=== PATIENT | male | born 1940 | race Caucasian/White ===

== ENCOUNTER → 2016-09-13 | Outpatient (CLI) | payer MEDICARE ==
[~2016-09-13] MED LIST: ACET-685 PO; ALBU8.5H7 IH; ASPI-655 PO; ATOR10TA PO; BUDE10.2 INH; BUPR200T31 PO; DOXY100T PO; IPRA12.9 IH; Ipratropium/Albuterol Sulfate IH; LISI-410 PO; MELO7.5T31 PO; MULT1TAB52 PO; NS 100ML 100 ML IV PRN; NS FLUSH PRN; PRED20TA PO; VARE1TAB20 PO
--- NOTE | 2016-09-14 11:56 | DIREP ---
COMPARISON:[facility], CR, XRAY RIBS 3VWS-RT, 09/06/2016, 10:29 AM. [facility], CT, CTA PE CHEST W/PELVIS/ LEGS, 06/17/2016, 00:39 AM. INDICATIONS:D38.6 NEOPLASM OF RESPIRATORY ORGAN TECHNIQUE:Helical sections through the chest were performed from the lung apices through the diaphragms without and with IV contrast. Sagittal and coronal reconstructions are obtained from source images. FINDINGS: LUNGS:Severe centrilobular emphysema, with stable bilateral upper and lower lobe lung nodules, noted to be calcified in the left upper lobe. PLEURA:Normal. No mass or effusion. CARDIAC:Normal. No enlargement, pericardial thickening, or significant calcification. MEDIASTINUM:Normal, except for median sternotomy. No mass or adenopathy. RENA:Normal. No mass or adenopathy. AORTA:Normal, except for atherosclerotic changes. No aneurysm. CHEST WALL:Normal. No mass or axillary adenopathy. LIMITED ABDOMEN:Normal. Limited images of the upper abdomen are unremarkable. BONES:Normal, except for healed bilateral rib fractures. No bony lesion or acute fracture. OTHER:Negative. CONCLUSION:Severe centrilobular emphysema, with stable bilateral upper and lower lobe lung nodules, noted to be calcified in the left upper lobe. No new abnormality or significant interval change. Dictated by: Mane Zaman M.D. on 09/14/2016 at 11:48 AM
== END | disposition home or self-care (01) ==
LOC: CT 15:07
PROVIDERS: ATTEND Internal Medicine
DX: D38.6 Neoplasm of uncertain behavior of respiratory organ, unspecified (principal)
CPT/HCPCS: 36415; 71270; 82565; J7030; Q9967; J7050

== ENCOUNTER 2016-12-11 11:33 | Inpatient (IN) | payer MEDICARE ==
[~2016-12-11] VITALS: Ht 157.5 cm; Wt 47.2 kg
[~2016-12-11 11:33] MED LIST changes: +ALBU8.5H3 IH; -ALBU8.5H7 IH; -ASPI-655 PO; -ATOR10TA PO; -BUPR200T31 PO; -DOXY100T PO; -Ipratropium/Albuterol Sulfate IH; +MELO-180 PO; -MELO7.5T31 PO; -MULT1TAB52 PO; -NS 100ML 100 ML IV PRN; -NS FLUSH PRN
--- NOTE | 2016-12-11 11:43 | NUR ---
arrival PATIENT ARRIVED TO ED8 IN CUSTODY OF THE [facility] OFFICE, BROUGHT TO ED COURT ORDERED FOR NOT SLEEPING OR TAKING MEDICATIONS, PATIENT IS WAS BELIGERANT TO DAUGHTER AND TOLD HER SHE WAS LYING TO HIM, WHEN ASKED WHAT THEY LIED TO HIM ABOUT HE STATED "FOR DRUGGING AND CUTTING MY HAIR. HERE FOR EVALUATION FOR THE GP.
[2016-12-11 11:55] LABS: BASOPHIL % 0.6 % (0.0-0.2); EOSINOPHIL # 0.1 10^3/uL (0.0-0.2); EOSINOPHIL % 1.7 % (0.0-5.0); HEMATOCRIT 40.5 % (37.0-53.0); HEMOGLOBIN 13.2 g/dL (13.9-16.3); LYMPHOCYTES # 1.1 10^3/uL (1.0-4.8); LYMPHOCYTES % 16.4 % (24.0-44.0); MEAN CELL HGB 30.8 pg (26-34); MEAN CELL HGB CONCENTRATION 32.6 g/dL (33-37); MEAN CORP VOLUME 94.6 fL (78-100); MEAN PLATELET VOLUME 8.7 fL (7.8-11.0); MONOCYTES # 0.5 10^3/uL (0.3-0.8); MONOCYTES % 7.4 % (5.0-12.0); NEUTROPHIL # 4.8 10^3/uL (1.8-7.7); NEUTROPHILS % 73.7 % (41.0-85.0); RED BLOOD CELL 4.28 10^6/uL (4.50-5.90); RED CELL DISTRIBUTION WIDTH 16.5 % (11.5-14.5); WHITE BLOOD CELL 6.5 10^3/uL (4.5-11.0)
[2016-12-11 11:58] LABS: ABG OX -sO2 94.3 % (95-); ABG PCO2 30.7 mmHg (35.0-45.0); BE(B) -2.7 mmol/L (-2.0-2.0); HCO3act 20.4 mmol/L (22.0-26.0); pO2 73.3 mmHg (75.0-100.0)
[2016-12-11 12:14] LABS: INR 1.1; PARTIAL THROMBOPLASTIN TIME 24.7 SEC (24.67-30.72); PROTHROMBIN PROTIME 11.9 SEC (9.8-11.9)
[2016-12-11 12:23] LABS: ALANINE AMINOTRANSFERASE 19 U/L (12-78); ALBUMIN 4.3 g/dL (3.4-5.0); ALKALINE PHOSPHATASE 75 U/L (50-136); ANION GAP 16.4; ASPARTATE AMINO TRANSFERASE 19 U/L (0-35); CALCIUM 9.2 mg/dL (8.4-10.5); CARBON DIOXIDE 24.7 mmol/L (20.0-32); CHOLESTEROL 150 mg/dL (120-240); CREATINE KINASE MB 2.2 ng/mL (0.5-3.6); CREATININE SERUM 1.14 mg/dL (0.59-1.40); GLUCOSE 114 mg/dL (70-110); HDL CHOLESTEROL 83 mg/dL (32-96)
[2016-12-11 12:25] LABS: BILIRUBIN,URINE NEGATIVE (NEGATIVE); PH,URINE 5 (5.0-6.0); UROBILINOGEN,URINE NORMAL (NEGATIVE)
--- NOTE | 2016-12-11 12:30 | DIREP ---
PROCEDURE:CHEST [address] [facility], CR, XRAY RIBS 3VWS-RT, 09/06/2016, 10:[address] [facility], CR, XRAY CHEST SINGLE VW, 06/22/2016, 09:39 AM. INDICATIONS:medical clearance FINDINGS: LUNGS/PLEURA:There is pulmonary hyperinflation consistent with underlying COPD. No focal consolidation. No effusions. VASCULATURE:Normal. Unremarkable pulmonary vasculature. CARDIAC:Normal heart size. Post CABG changes with median sternotomy wires. MEDIASTINUM:Normal. No visible mass or adenopathy. BONES:Mild degenerative disc disease and spondylosis without visible acute abnormalities. OTHER:Negative. CONCLUSION:COPD. No definite acute cardiopulmonary abnormalities. There is no significant change as compared with the previous examination. Dictated by: Hung Cotto M.D. on 12/11/2016 at 12:28 PM
[2016-12-11 12:35] LABS: VALPROATE < 3 ug/mL (50-100)
[2016-12-11 12:37] LABS: UR AMPHETAMINE QUAL NEGATIVE (NEGATIVE); UR BARBITURATE QUAL NEGATIVE (NEGATIVE)
[2016-12-11 12:38] LABS: UR BENZODIAZEPINE QUAL NEGATIVE (NEGATIVE); UR COCAINE QUAL NEGATIVE (NEGATIVE); UR OPIATE QUALITIVE NEGATIVE (NEGATIVE); UR TETRAHYDROCANNABINOL (THC) NEGATIVE (NEGATIVE)
[2016-12-11 12:39] LABS: APPEARANCE,URINE CLEAR (CLEAR); UA COLOR YELLOW (YELLOW)
[2016-12-11 12:40] LABS: HYALINE CASTS, URINE 0-1 (NONE SEEN); WBC,URINE 0-2 WBC/HPF (0-2)
--- NOTE | 2016-12-11 13:00 | NUR ---
JULIANNE JOHANSEN SPOKE WITH DOCTOR WHITAKER ABOUT ADMISSION.
--- NOTE | 2016-12-11 13:09 | ER.PDOC ---
General Chief Complaint: Medical Clearance Stated Complaint: PSYCH Time seen by MD: 11:30 Source: patient History of Present Illness Initial Comments bipolar, agitated, hallucinaating, not sleeping. on warrant for GP Severity: moderate Associated Symptoms: Frustrated, Hallucinating Prior symptoms/Treatment: Similar symptoms previous Allergies: Coded Allergies: No Known Allergies (Unverified , 12/01/13) Home Meds Reported Medications Acetaminophen With Codeine (Tylenol With Codeine #3 Tablet)1 Each Tablet1 Tab PO TID PRN PAIN #30 TAB 06/22/16 Lisinopril 20 Mg Tablet1 Tab PO DAILY #30 TAB Ref 5 06/22/16 Budesonide/Formoterol Fumarate (Symbicort 160-4.5 Mcg Inhaler)10.2 Gm Hfa.aer.ad2 Puff INH BID 06/17/16 Meloxicam 7.5 Mg Tablet7.5 Mg PO BID 06/17/16 Albuterol Sulfate (Proair Hfa)8.5 Gm Hfa.aer.ad1 Puff IH QID PRN WHEEZING 06/17/16 Past Medical History Medical History: cardiac problems, hypertension Surgical History: knee, shoulder, tonsillectomy Social History Smoking: cigarettes, less than 1 pack/day Alcohol Use: none Drug Use: none Review of Systems Constitutional: no symptoms reported EENTM: no symptoms reported Respiratory: no symptoms reported Cardiovascular: no symptoms reported Gastrointestinal: no symptoms reported Genitourinary: no symptoms reported Musculoskeletal: no symptoms reported Skin: no symptoms reported Physical Exam General Appearance: No acute distress, Alert EENT: No nystagmus Neck: Non-Tender Respiratory: chest non-tender, lungs clear Cardiovascular: Normal Peripheral Pulses, Regular Rate, Rhythm Gastrointestinal: Normal Bowel Sounds Neurological/Psychiatric: Alert, Normal Mood/Affect Appearance/Memory/Insight: Appropriate Appearance Behavior/Eye Contact/Speech: Cooperative, Good Eye Contact Thoughts/Hallucinations: Normal Thought Pattern Skin: Normal Color, Warm/Dry Results/Orders Results/Orders Laboratory Tests Test 12/11/16 11:49 12/11/16 11:52 12/11/16 12:09 Blood Gas pH 7.440 (7.350-7.450) Blood Gas PCO2 30.7mmHg (35.0-45.0) Blood Gas PO2 73.3mmHg (75.0-100.0) Blood Gas HCO3 20.4mmol/L (22.0-26.0) Blood Gas Base Excess -2.7mmol/L (-2.0-2.0) Arterial Blood Oxygen Saturation 94.3% (95-) Lactic Acid (Blood Gas) 2.3MMOL/L (0.5-1.0) Blood Gas Oxygen Given Ra Blood Gas Inspired Oxygen 21.0% (20-101) White Blood Count 6.510^3/uL (4.5-11.0) Red Blood Count 4.2810^6/uL (4.50-5.90) Hemoglobin 13.2g/dL (13.9-16.3) Hematocrit 40.5% (37.0-53.0) Mean Corpuscular Volume 94.6fL (78-100) Mean Corpuscular Hemoglobin 30.8pg (26-34) Mean Corpuscular Hemoglobin Concent 32.6g/dL (33-37) Red Cell Distribution Width 16.5% (11.5-14.5) Platelet Count 71938^3/uL (150-400) Mean Platelet Volume 8.7fL (7.8-11.0) Neutrophils (%) (Auto) 73.7% (41.0-85.0) Lymphocytes (%) (Auto) 16.4% (24.0-44.0) Monocytes (%) (Auto) 7.4% (5.0-12.0) Neutrophils # (Auto) 4.810^3/uL (1.8-7.7) Lymphocytes # (Auto) 1.110^3/uL (1.0-4.8) Monocytes # (Auto) 0.510^3/uL (0.3-0.8) Absolute Immature Granulocyte (auto 0.0110^3 u/L (0-2) Eosinophils % 1.7% (0.0-5.0) Basophils % 0.6% (0.0-0.2) Basophils # 0.010^3/uL (0.0-0.1) Eosinophil Count 0.110^3/uL (0.0-0.2) Prothrombin Time 11.9SEC (9.8-11.9) Prothromb Time International Ratio 1.1 Activated Partial Thromboplast Time 24.7SEC (24.67-30.72) Sodium Level 142mmol/L (132-145) Potassium Level 4.1mmol/L (3.6-5.2) Chloride Level 105.0mmol/L (96-109) Carbon Dioxide Level 24.7mmol/L (20.0-32) Anion Gap 16.4 Blood Urea Nitrogen 29mg/dL (7-18) Creatinine 1.14mg/dL (0.59-1.40) Estimat Glomerular Filtration Rate BUN/Creatinine Ratio 25.0 Glucose Level 114mg/dL (70-110) Hemoglobin A1c 6.5% (4.2-6.2) Calculated Osmolality 300.3 Calcium Level 9.2mg/dL (8.4-10.5) Total Bilirubin 0.3mg/dL (0.2-1.0) Aspartate Amino Transf (AST/SGOT) 19U/L (0-35) Alanine Aminotransferase (ALT/SGPT) 19U/L (12-78) Alkaline Phosphatase 75U/L (50-136) Total Creatine Kinase 88U/L (39-308) Creatine Kinase MB 2.2ng/mL (0.5-3.6) Troponin I < 0.02ng/mL (0.00-0.05) C-Reactive Protein 1.06mg/dL (0.00-5.00) Pro-B-Type Natriuretic Peptide 124pg/mL (0-450) Total Protein 8.3g/dL (6.4-8.2) Albumin 4.3g/dL (3.4-5.0) Globulin 4.0 Triglycerides Level 38mg/dL (20-200) Cholesterol Level 150mg/dL (120-240) LDL Cholesterol, Calculated 59.4 VLDL Cholesterol 7.6 HDL Cholesterol 83mg/dL (32-96) Cholesterol Ratio (LDL/HDL) 0.7 Cholesterol/HDL Ratio 1.438732 Thyroid Stimulating Hormone (TSH) 0.770mIU/mL (0.358-3.740) Valproic Acid (Depakene) Level < 3ug/mL (50-100) Sammy Martinez Level < 0.20mmol/L (0.6-1.2) Percent Immature Gran (Cell Imm) 0.20% (0.00-0.50) Urine Collection Type Void Urine Color Yellow (YELLOW) Urine Appearance Clear (CLEAR) Urine Bilirubin NegativeMG/DL (NEGATIVE) Urine Ketones Negative (NEGATIVE) Urine Specific [place] 1.020 (1.005-1.035) Urine pH 5 (5.0-6.0) Urine Protein 15 mg/dl (NEGATIVE) Urine Urobilinogen Normal (NEGATIVE) Urine Nitrate Negative (NEGATAIVE) Urine Leukocyte Esterase Negative (NEGATIVE) Urine Blood Negative (NEGATIVE) Urine RBC 0-2RBC/HPF (NONE SEEN) Urine WBC 0-2WBC/HPF (0-2) Urine Squamous Epithelial Cells Rare#/HPF (FEW) Urine Bacteria Rare (NONE SEEN) Urine Hyaline Casts 0-1 (NONE SEEN) Urine Glucose Normal (NEGATIVE) Opiates Screen Negative (NEGATIVE) Barbiturate Screen Negative (NEGATIVE) Urine Tricyclic Antidepressants Negative (NEGATIVE) Phencyclidine (PCP) Screen Negative (NEGATIVE) Amphetamines Screen Negative (NEGATIVE) Benzodiazepines Screen Negative (NEGATIVE) Cocaine Screen Negative (NEGATIVE) Ur Tetrahydrocannabinol (THC) Scrn Negative (NEGATIVE) Progress Progress pt oriented, but very unhappy he is here with LE as he needs to get to [place] as soon as possible. Departure Time of Disposition: 13:09 Disposition: 01 HOME, SELF-CARE Impression: Primary Impression: Bipolar 1 disorder Condition: Stable Referrals: LITZY LONG MD (PCP) PRIMARY CARE PROVIDER GETACHEW JOHANSEN MD Dec 11, 2016 13:09
--- NOTE | 2016-12-11 13:16 | NUR ---
STATUS TALKED WITH KIM Scott RACK WASHER, UNABLE TO SEE PATIENT, WILL BE DOWN TO ED FOR EVALUATION.
--- NOTE | 2016-12-11 13:26 | NUR ---
lunch LUNCH OFFERED TO PATIENT, PATIENT REFUSED.
[2016-12-11] MEDS ORDERED: BUPR200T31 PO (13:34)
--- NOTE | 2016-12-11 13:53 | NUR ---
STATUS CONTINUE TO AWAIT SOCIAL SERVICE ARRIVAL FOR EVALUATION FOR THE GP.
--- NOTE | 2016-12-11 14:02 | NUR ---
[facility] HERE TO EVAL PATIENT FOR THE GP.
--- NOTE | 2016-12-11 14:48 | NUR ---
SOCIAL SERVICE JOSSE TALKED WITH PSYCHIATRIST, BY LAW HAVE TO KEEP PATIENT FOR 24 HOURS. JOSSE TO ROOM TO TELL PATIENT.
--- NOTE | 2016-12-11 15:45 | NUR ---
ARRIVAL: PT. ARRIVAL ON UNIT VIA WHEELCHAIR ESCORTED BY DARCY CLEARY [place] AND SECURITY. PT. ALERT AND ORIENTED X 3. PT. IS ANGRY THAT HE IS HERE. PT. IS MAD AT FAMILY FOR PUTTING HIM HERE. PT. DOES NOT WANT ANY INFORMATION GIVEN TO ANYONE INCLUDING FAMILY AND DOES NOT WANT THEM TO KNOW HE IS HERE.
[2016-12-11] MEDS ORDERED: MULT1TAB52 PO (17:27)
[2016-12-11] MEDS ORDERED: ATOR10TA PO (17:30)
[2016-12-11 18:20] VITALS: BP 157/78
[2016-12-11] MEDS ORDERED: MOBIC ONE (20:21)
--- NOTE | 2016-12-11 21:40 | PCM.HP ---
History of Present Illness Reason for Visit: Hallucinations, Yasmin History of Present Illness 76 y/o M with PMHx of Bipolar D/O, COPD was admitted for involuntary 24 hour hold. He has no acute medical issues. Past Medical History Cardiac: CHF Pulmonary: COPD Psychiatric: Bipolar Ab: Uncooperative, Poor eye contact Past Surgical History: Tonsillectomy Past Social History Smoke: 1 pack per day Alcohol: none Drugs: None Travel Hx EBOLA RISK:Travel to/contact w: No Is pt experiencing any Ebola s: No Review of Systems Constitutional: No: Chills, Fever, Malaise, Other, Sweats, Weakness Eyes: No: Conjunctivae inflammation, Eyelid inflammation, Other, Pain, Redness , Vision change ENT: No: Ear discharge, Ear pain, Mouth pain, Mouth swelling, Nose congestion, Nose discharge, Nose pain, Other, Throat pain, Throat swelling Respiratory: No: Cough, Dry, Hemoptysis, Other, Pleuritic Pain, SOB with excertion, Shortness of breath, Sputum, Wheezing, Wheezing Cardiovascular: No: Chest Pain, Edema, Lt Headedness, Orthopnea, Other, Palpitations, Paroxysmal Noc. Dyspnea Gastrointestinal: No: Abdominal Pain, Constipation, Diarrhea, Hematochezia, Melena, Nausea, Other, Vomiting Genitourinary: No Dysuria, No Frequency, No Incontinence, No Hematuria, No Retention, No Other Musculoskeletal: No: arm pain, back pain, foot pain, hand pain, leg pain, neck pain, other, shoulder pain Skin: No: Bruising, Jaundice, Lesions, Other, Rash Neurological: No: Change in speech, Confusion, Incoordination, Numbness, Other , Seizures, Weakness Other Laboratory Tests Test 12/11/16 11:49 12/11/16 11:52 12/11/16 12:09 Blood Gas pH 7.440 Blood Gas PCO2 30.7mmHg Blood Gas PO2 73.3mmHg Blood Gas HCO3 20.4mmol/L Blood Gas Base Excess -2.7mmol/L Arterial Blood Oxygen Saturation 94.3% Lactic Acid (Blood Gas) 2.3MMOL/L Blood Gas Oxygen Given Ra Blood Gas Inspired Oxygen 21.0% White Blood Count 6.510^3/uL Red Blood Count 4.2810^6/uL Hemoglobin 13.2g/dL Hematocrit 40.5% Mean Corpuscular Volume 94.6fL Mean Corpuscular Hemoglobin 30.8pg Mean Corpuscular Hemoglobin Concent 32.6g/dL Red Cell Distribution Width 16.5% Platelet Count 78809^3/uL Mean Platelet Volume 8.7fL Neutrophils (%) (Auto) 73.7% Lymphocytes (%) (Auto) 16.4% Monocytes (%) (Auto) 7.4% Neutrophils # (Auto) 4.810^3/uL Lymphocytes # (Auto) 1.110^3/uL Monocytes # (Auto) 0.510^3/uL Absolute Immature Granulocyte (auto 0.0110^3 u/L Eosinophils % 1.7% Basophils % 0.6% Basophils # 0.010^3/uL Eosinophil Count 0.110^3/uL Prothrombin Time 11.9SEC Prothromb Time International Ratio 1.1 Activated Partial Thromboplast Time 24.7SEC Sodium Level 142mmol/L Potassium Level 4.1mmol/L Chloride Level 105.0mmol/L Carbon Dioxide Level 24.7mmol/L Anion Gap 16.4 Blood Urea Nitrogen 29mg/dL Creatinine 1.14mg/dL Estimat Glomerular Filtration Rate BUN/Creatinine Ratio 25.0 Glucose Level 114mg/dL Hemoglobin A1c 6.5% Calculated Osmolality 300.3 Calcium Level 9.2mg/dL Total Bilirubin 0.3mg/dL Aspartate Amino Transf (AST/SGOT) 19U/L Alanine Aminotransferase (ALT/SGPT) 19U/L Alkaline Phosphatase 75U/L Total Creatine Kinase 88U/L Creatine Kinase MB 2.2ng/mL Troponin I < 0.02ng/mL C-Reactive Protein 1.06mg/dL Pro-B-Type Natriuretic Peptide 124pg/mL Total Protein 8.3g/dL Albumin 4.3g/dL Globulin 4.0 Triglycerides Level 38mg/dL Cholesterol Level 150mg/dL LDL Cholesterol, Calculated 59.4 VLDL Cholesterol 7.6 HDL Cholesterol 83mg/dL Cholesterol Ratio (LDL/HDL) 0.7 Cholesterol/HDL Ratio 1.859691 Thyroid Stimulating Hormone (TSH) 0.770mIU/mL Valproic Acid (Depakene) Level < 3ug/mL [place] Level < 0.20mmol/L Percent Immature Gran (Cell Imm) 0.20% Urine Collection Type Void Urine Color Yellow Urine Appearance Clear Urine Bilirubin NegativeMG/DL Urine Ketones Negative Urine Specific [place] 1.020 Urine pH 5 Urine Protein 15 mg/dl Urine Urobilinogen Normal Urine Nitrate Negative Urine Leukocyte Esterase Negative Urine Blood Negative Urine RBC 0-2RBC/HPF Urine WBC 0-2WBC/HPF Urine Squamous Epithelial Cells Rare#/HPF Urine Bacteria Rare Urine Hyaline Casts 0-1 Urine Glucose Normal Opiates Screen Negative Barbiturate Screen Negative Urine Tricyclic Antidepressants Negative Phencyclidine (PCP) Screen Negative Amphetamines Screen Negative Benzodiazepines Screen Negative Cocaine Screen Negative Ur Tetrahydrocannabinol (THC) Scrn Negative Allergies: Coded Allergies: No Known Allergies (Unverified , 12/01/13) Scheduled Atorvastatin 10MG (Lipitor 10MG) 10 MG PO DAILY (Reported) Budesonide/Formoterol Fumarate (Symbicort 160-4.5 Mcg Inhaler) 2 PUFF INH BID ( Reported) Bupropion HCl (Bupropion HCl ER) 100 MG PO DAILY (Reported) Lisinopril (Lisinopril) 1 TAB PO DAILY (Reported) Meloxicam (Meloxicam) 7.5 MG PO BID (Reported) Multivitamin (Multivitamins) 1 TAB PO DAILY (Reported) Scheduled PRN Acetaminophen With Codeine (Tylenol With Codeine #3 Tablet) 1 TAB PO TID PRN PRN PAIN (Reported) Albuterol Sulfate (Proair Hfa) 1 PUFF IH QID PRN PRN WHEEZING (Reported) VTE VTE Risk Total Score: 3 VTE Risk Score VTE Risk: Score 0-1 = Low Risk (Aggressive mobilization; early ambulation; no VTE prophylaxis required) Score 2: Moderate Risk (Intermittent/Pneumatic Compression Device OR Lovenox/Heparin/Coumadin) Score 3-4: High Risk (Intermittent/Pneumatic Compression Device AND Lovenox/Heparin/Coumadin) Score > or =5: Highest Risk (Intermittent/Pneumatic Compression Device AND Lovenox/Heparin/Coumadin) Antico:Hep/LMWH/Coum/Xarelto: No Mechanical device ordered: No VTE VTE Present on Admission: No Currently receiving anticoagul: No VTE Risk Total Score: 3 Exam Vital Signs Vital Signs Date Time Temp Pulse Resp B/P Pulse Ox O2 Delivery O2 Flow Rate FiO2 12/11/16 18:22 Room Air 12/11/16 18:20 98.3 107 24 157/78 97 General Appearance: Alert, Oriented X3, No acute distress, Other (Irritable about involuntary admission to GP) HEENT: Atraumatic, PERRLA, EOMI, Mucous membr. moist/pink Respiratory: Clear to auscultation, Normal air movement Cardiovascular: Regular rate, Normal S1, Normal S2, No murmurs Abdominal: Normal bowel sounds, Soft, No tenderness, No hepatospenomegaly, No masses Extremities: No clubbing, No cyanosis, No edema, Normal pulses, No tenderness/ swelling Skin: No rash, No breakdown, No lesions Neuro: Normal gait, Normal speech, Strength at 5/5 X4 ext, Normal tone, Sensation intact, Cranial nerves 3-12 NL, Reflexes 2+ Psych/Mental Status: Other (+Irritable) Assessment/Plan Assessment/Plan Problems: (1) Cigarette nicotine dependence with withdrawal Permanent Comment: Patient has tried nicotine patches in the past without success. - Chantix Last Edited By: Neil Durham MD on Jun 17, 2016 13:41 Status: Acute ICD Code: F17.213 SNOMED: 75849708 (2) COPD (chronic obstructive pulmonary disease) Status: Acute ICD Code: J44.9 SNOMED: 38647354 (3) Congestive heart failure Status: Chronic ICD Code: I50.9 SNOMED: 91596421 (4) Stomi-OHT-bmsgj Status: Acute ICD Code: E07.89 SNOMED: 840660319 (5) Bipolar 1 disorder Status: Acute ICD Code: F31.9 SNOMED: 942046593 (6) Delusional disorder Status: Acute ICD Code: F22 SNOMED: 08870387 (7) Diabetes mellitus type 2 in nonobese Permanent Comment: HbA1c 6.5 --- diabetic by definition, but A1c < 7 -- does not require additional treatment at this time. Last Edited By: Neil Durham MD on Dec 11, 2016 21:32 Status: Acute ICD Code: E11.9 SNOMED: 971058148 (8) Lactic acid acidosis Permanent Comment: Lactic acid 2.7. No evidence of acute disease. Likely associated with COPD. Last Edited By: Neil Durham MD on Dec 11, 2016 21:44 Status: Acute ICD Code: E87.2 SNOMED: 47911384 Patient History: Cerebrovascular disorder 33 FATHER, , Age:79 Chronic obstructive pulmonary disease G8 BROTHER Diabetes mellitus G8 SISTER Hypertension G8 SISTER No known health problems G8 BROTHER G8 BROTHER 19 CHILD 19 CHILD 19 CHILD 19 CHILD NEIL DURHAM MD Dec 11, 2016 21:40
[2016-12-11] MEDS ORDERED: TYLENOL WITH CODEINE #3 TABLET PO PRN (22:00)
[2016-12-11] MEDS ORDERED: SYMBICORT 160-4.5 MCG INHALER IH SCH (22:00)
--- NOTE | 2016-12-11 22:16 | HPH ---
ADMIT DATE: 12/11/2016 ADMISSION PSYCHIATRIC EVALUATION TIME: 3:40-4:40. CHIEF COMPLAINT: The patient was admitted with presumed psychotic symptoms with emergency mcc papers for evaluation. They were followed by his daughters. HISTORY OF PRESENT ILLNESS: This gentleman is a male elderly with a history of being homeless for many years, recently living with his daughters and they reported some delusional thought that he felt someone cut his hair and that he had some auditory hallucinations, hearing music through a wall plug or outlet. On evaluation today, the patient denies any auditory or visual hallucinations. No ideas of reference, no thought broadcasting, no thought insertion, no paranoia and denies any delusional thoughts, stating that he did not say, he heard musical noises. He did state that someone had cut his hair and he was uncertain as to how this had taken place. Mood is euthymic. No depressive symptoms, no depressed mood, no disturbance in sleep, appetite, energy and concentration. No symptoms of bipolar illness, clearly no overt symptoms of psychosis. He is virtually asymptomatic from the standpoint of a psychiatric disorder currently. Although we have evaluated him thoroughly he is on the emergency mcc for evaluation and based on current findings and evaluation representing no danger or risk to himself or other individuals and no active psychiatric disorder to be treated, he will likely be discharged tomorrow. PAST PSYCHIATRIC HISTORY: The patient has been through the Emergency Room before with possible delusional thought, although he was not admitted at that time. PAST MEDICAL HISTORY: 1. Surgery of his shoulder, neck and knees. 2. Myocardial infarction with coronary artery bypass graft. 3. Hypertension. CURRENT MEDICATIONS: Medication for hypertension. No psychiatric medications. ALLERGIES: NO KNOWN DRUG ALLERGIES. FAMILY PSYCHIATRIC HISTORY: None reported. SOCIAL HISTORY: The patient raised in living with his daughters. Poor relationship per his report, and , worked with heavy equipment in the past. Tobacco positive. Alcohol positive on occasion per the patient. No illicit drug use. OBJECTIVE: VITAL SIGNS: Blood pressure 157/78, pulse 107, oxygen saturation 97%, respirations 24 and temperature 98.3. REVIEW OF SYSTEMS: HEENT: Normal. RESPIRATORY: No shortness of breath, coughing or wheezing. CARDIAC: No chest pain or palpitations. GASTROINTESTINAL: No nausea, vomiting, diarrhea or constipation. GENITOURINARY: No difficulty with urination. MUSCULOSKELETAL: No muscle pain. EXTREMITIES: No swelling or edema. NEUROLOGIC: Normal. ENDOCRINE: Normal. MENTAL STATUS EXAMINATION: Reveals an alert male, no increased or decreased psychomotor activity. Concentration and memory are intact. Speech and language are normal. Orientation is full. Intelligence is average. Mood assessed as euthymic. Affect appropriate. Insight and judgment fair. Thought logical and goal directed with no suicidal or homicidal ideation, intent or plan. No psychotic symptoms noted. ASSESSMENT AND PLAN: DIAGNOSES:. AXIS I: Rule out delusional disorder. AXIS II: Deferred. AXIS III: Refer to past medical history. AXIS IV: Stress of mental illness if present. AXIS V: Global Assessment of Functioning 45. TREATMENT PLAN: 1. This patient was admitted involuntarily for evaluation to the [facility]; at this point does not meet criteria for the use of psychotropic medications and representing no harm of danger to himself or other individuals. 2. The patient based on the fact that he has no psychosis and no suicidal or homicidal ideation, intent or plan will be discharged tomorrow with a discharge treatment plan of transportation to a bus where he will be leaving for . There is no psychiatric criteria met to hold this individual against his will. Enrique Louis MD DR: VINNY/suraj JOB# [id number]
[2016-12-11] MEDS: MOBIC PO SCH ×2 (22:22→22:25)
[2016-12-12] MEDS ORDERED: ZESTRIL ONE (06:01)
[2016-12-12] MEDS ORDERED: LIPITOR ONE (06:01)
[2016-12-12] MEDS ORDERED: MOBIC ONE (06:01)
[2016-12-12] MEDS ORDERED: TYLENOL WITH CODEINE #3 TABLET PO ONE (06:02)
[2016-12-12 08:00] VITALS: BP 129/61
[2016-12-12] MEDS: MOBIC PO SCH (08:03)
[2016-12-12] MEDS ORDERED: BROVANA IH SCH (09:00)
[2016-12-12] MEDS ORDERED: ZESTRIL PO SCH (09:00)
[2016-12-12] MEDS ORDERED: PULMICORT IH SCH (09:00)
[2016-12-12] MEDS ORDERED: THERA PO SCH (09:00)
[2016-12-12] MEDS ORDERED: LIPITOR PO SCH (09:00)
--- NOTE | 2016-12-12 09:00 | NUR ---
BEHAVIOR; PT. IS ALERT AND ORIENTED X 4. PT. DENIES AY DEPRESSION, ANXIETY, AND DENIES ANY S/H IDEATION. PT. HAS BEEN CAM AND COOPERATIVE.
--- NOTE | 2016-12-12 09:18 | PRM.ACF1 ---
Admission Criteria Forms PSYCHIATRIC DISORDERS Clinical Indications for Inpatient Care (Place 'X' for any and all applicable criteria): Ongoing inpatient care may be needed for ANY ONE of the following(1)(2)(3)(4)(6) (7)(8): [ ]I. Danger to self or others not manageable at lower level of care. [ ]II. Grave disability (eg, inability to perform self care necessary at lower level of care) [X ]III. Agitation or inappropriate behavior interfering with care for primary condition (eg, attempting to discontinue lines or drains prematurely, unable to cooperate with respiratory care) [X ]IV. Severe disability or disorder indicated by ALL of the following: [X ]a) Severe behavioral health disorder-related symptoms or condition indicated by ANY ONE of the following: [ ]i) Severe problem with cognition, memory, judgment, or impulse control [X ]ii) Severe clinical manifestations (eg, hallucinations , delusions, other acute psychotic symptoms, cecelia, extreme agitation or anxiety) [X ]b) Patient management at lower level of care is not feasible until acute intervention or modification is initiated. Extended stay beyond goal length of stay for the primary condition may be indicated when ANY ONE of the following is present: (1)(2)(3)(4): [ ]a) Patient is a danger to self or others and not manageable at lower level of care. [ ]b) Behavior crisis management, including physical or chemical restraints, is required and is not available at a lower level of care. [ ]c) Behavioral symptoms (e.g., agitation, somnolence, inappropriate behavior) are present, and are not manageable at a lower level of care. [ ]d) Patient cannot understand follow-up treatment and crisis plan. [ ]e) Provider and supports are not sufficiently available at lower level of care. [ ]f) Patient cannot participate (e.g., verify absence of plan for harm) and is in needed of monitoring. The original [facility] [employer] content created by [facility] [employer] has been revised. The portions of the content which have been revised are identified through the use of italic text or in bold, and [employer] has neither reviewed nor approved the modified material. All other unmodified content is copyright [facility] [employer]. Please see references footnoted in the original [employer] edition 2016 Is [facility]/Gonzalo's added/comple: YES JOSSIE AVENDANO CCDS Dec 12, 2016 09:18
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
--- NOTE | 2016-12-12 11:55 | NUR ---
GMAS: PT REFUSED TO PARTICIPATE IN ASSESSMENT. PT WAS AGITATED AND INFORMED THIS WORKER THAT HE WAS ONLY HERE TO DO HIS 24 HOURS SO THERE IS NO POINT. Addendum: 12/14/16 at 1156 by Aleah Richter, REYNA, EXTRACTOR OPERATOR SOLVENT PROCESS SW Amended: Links added.
--- NOTE | 2016-12-12 11:56 | NUR ---
MMSE:0 PT REFUSED TO COMPLETE ASSESSMENT. PT IS ORIENTED X 4. PT IS AGITATED. Addendum: 12/14/16 at 1157 by Aleah Richter, REYNA, CASE MANAGEMENT COORDINATOR SW Amended: Links added.
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
[2016-12-12 14:58] VITALS: BP 129/61
--- NOTE | 2016-12-12 16:05 | NUR ---
DISCHARGE: PT. IS DISCHARGED TODAY AT 1600 PT. IS ALERT AND ORIENTED X 3. PT. IS COOPERATIVE BUT GETS AGITATED WHEN ASKS TO SIGN PAPERS OR ASK HIM ANY QUESTIONS. PT. IS READY TO LEAVE. ARRANGEMENTS HAVE BEEN MADE FOR PT TO GO TO [facility] TO PICK HIM UP IN THE MORNING AND TAKE HIM TO THE BUS STATION TO GO TO [place]. PT. STATES HE DOES NOT WANT HIS DAUGHTERS TO KNOW WHERE HE IS. PT. IS ALERT X 3. PT. DENIES ANY DEPRESSION, ANXIETY, OR SUICIDAL OR HOMICIDAL IDEATION. MEDICATION CALLED INTO [facility] AND EXIT CARE INSTRUCTIONS GIVEN TO PT. PT WALKED TO FRONT DOOR OF HOSPITAL ESCORTED BY SECURITY AND THIS RN. PT WAS LOOKING FOR PT. STARTED WALKING SOUTH TOWARD [facility]. PT. WS AMBULATING WITH A CANE.
--- NOTE | 2016-12-12 20:31 | DSH ---
DATE OF DISCHARGE: 12/12/2016 HOSPITAL COURSE: The patient is a 76-year-old male evaluated comprehensively from a psychiatric standpoint for psychosis and depression. He was admitted involuntarily to the [facility]. The patient demonstrated no auditory hallucinations, no delusional thought, no paranoia, no ideas of reference, no thought broadcasting, no thought insertion. Mood was euthymic. Affect was appropriate. Insight and judgment was fair. Thought logical and goal directed. No suicidal or homicidal ideation, intent or plan. The patient evidencing no psychosis, no bipolar disorder, no depression and requesting discharge, which was fully appropriate given the fact that he demonstrated no risk of harm to himself or other individuals. No psychiatric medications were indicated and none were used. He did participate in groups, therapies and activities for 1 day. Given this patient's lack of any psychotic symptoms or suicidality or homicidal thought it was elected to discharge this patient to an outpatient setting where he was to catch a bus and leave for [place]. He had money and had intention and had plans to make this happen. DISPOSITION AND DIAGNOSES: AXIS I: Rule out delusional disorder. AXIS II: Deferred. AXIS III: Refer to past medical history. AXIS IV: Stress of psychiatric admission. AXIS V: GAF of 45. TREATMENT PLAN: 1. This patient was not placed on psychiatric medications as none were indicated. 2. He is to follow up with his primary care physician in [place]. 3. He has a bus ticket and money and forensic social worker has ensured that he will be able to make his journey to [place] safely. MENTAL STATUS EXAMINATION: At the time of discharge, the patient is alert, fully oriented. Concentration and memory are intact. Speech and language are normal. Orientation full. Intelligence is average. Mood assessed as euthymic. Affect appropriate. Insight and judgment fair. Thought logical and goal directed. No suicidal or homicidal ideation, intent or plan. This patient is to be discharged appropriately to follow up when he arrives in [place]. Enrique Louis MD DR: VINNY/suraj JOB# [id number]
== END 2016-12-12 16:05 | disposition home or self-care (01) | DRG 885 ==
LOC: ER 11:33 → GP 15:10 → EEVIPCON 15:10
PROVIDERS: ADMIT Internal Medicine; ATTEND Internal Medicine
DX: F22 Delusional disorders (principal); F17.213 Nicotine dependence, cigarettes, with withdrawal; E87.2 Acidosis; R44.0 Auditory hallucinations; F31.9 Bipolar disorder, unspecified; J44.9 Chronic obstructive pulmonary disease, unspecified; E07.89 Other specified disorders of thyroid; E11.9 Type 2 diabetes mellitus without complications; I11.0 Hypertensive heart disease with heart failure; I50.9 Heart failure, unspecified; I25.2 Old myocardial infarction; Z95.1 Presence of aortocoronary bypass graft; Z59.0 Homelessness; Z79.899 Other long term (current) drug therapy; Z82.3 Family history of stroke; Z83.3 Family history of diabetes mellitus; Z82.49 Family history of ischemic heart disease and other diseases of the circulatory system
CPT/HCPCS: 36415; 36600; 71020; 80053; 80061; 80164; 80178; 80307; 81000; 82550; 82607; 82803; 83036; 83880; 84443; 84484; 85025; 85610; 85730; 86140; 93005; 97150; 97165; 99285; J3490; G8987; G8988

== ENCOUNTER 2017-02-14 13:49 | Observation (INO) | payer MEDICARE ==
[~2017-02-14] VITALS: Ht 167.6 cm; Wt 47.2 kg
[~2017-02-14 13:49] MED LIST changes: -ASPI81TA9 PO; -DOXY100T PO; -Ipratropium/Albuterol Sulfate IH
--- NOTE | 2017-02-14 14:20 | NUR ---
Pt on unit Pt arrived on unit via wheelchair. Oriented pt to room. Provided pt with fluids and snacks. Pt denies pain. Daughter at bedside. Call light within reach.
[2017-02-14 14:29] VITALS: BP 146/71
--- NOTE | 2017-02-14 16:16 | DIREP ---
PROCEDURE:XRAY SHOULDER MIN 2 VWS-LT COMPARISON:[facility], CR, XRAY CHEST 2 VWS, 02/14/2017, 10:38 AM.. Recommend a follow-up CT INDICATIONS:L shoulder pain FINDINGS: BONES:Degenerative narrowing of the glenohumeral joint. Note is made of a lucent lesion involving the inferior tip of the left scapula, measuring approximately 4.4 x 2.9 cm in size. Downsloping acromion causes impingement. Recommend a follow-up CT of the left shoulder and the left scapula. There are old rib fractures on the left side. JOINTS:Normal glenohumeral and acromioclavicular joints. No evidence for dislocation. SOFT TISSUES:Normal. OTHER:Normal. CONCLUSION:DJD in the left glenohumeral joint. Downsloping acromion causes impingement. A 4.4 x 2.9 cm lytic lesion in the inferior tip of the left scapula, recommend a follow-up CT of the left shoulder and left scapula. Dictated by: Felipe Stanley MD on 02/14/2017 at 04:12 PM
--- NOTE | 2017-02-14 16:30 | NUR ---
Breathing Pt called operations support specialist light and stated, "I cant breath." This nurse entered the room to find pt in bed breathing shallow. O2 sat at 97%. Pt stated, "I just feel like I cant breath." Applied 2L of O2 per NC to pt. Instructed pt to take deep breaths in the nose and out the mouth. Pt O2 up to 99%. Pt stated, "I am feeling much better now." Pt laying in bed. Even non labored respirations with equal rise and fall of the chest noted. Pt denies pain. Call light within reach.
[2017-02-14] MEDS: DUONEB 0.5 MG-3 MG/3 ML SOLN IH SCH ×2 (16:51→21:12)
--- NOTE | 2017-02-14 18:34 | NUR ---
REport received report from offgoing shift
--- NOTE | 2017-02-14 18:51 | DIREP ---
PROCEDURE:XRAY HIP MIN 2VW-LT COMPARISON:[facility], CR, XRAY HIP MIN 2VW-LT, 01/18/2017, 01:59 PM. INDICATIONS:L hip pain, HX FREQ FALLS FINDINGS: BONES:Normal. JOINTS:Mild degenerative acetabular sclerosis SOFT TISSUES:Normal. OTHER:Arterial calcium CONCLUSION: 1. Mild degenerative change. No traumatic abnormality Dictated by: John Sainz Jr. on 02/14/2017 at 06:49 PM
[2017-02-14 20:56] VITALS: BP 148/64
[2017-02-14] MEDS: VIBRAMYCIN PO SCH (21:05)
[2017-02-14] MEDS: SOLU-MEDROL IV SCH (21:05)
[2017-02-14] MEDS ORDERED: MORPHINE SULFATE IV ONE (22:00)
[2017-02-14] MEDS ORDERED: ZOFRAN IV PRN (22:00)
--- NOTE | 2017-02-14 22:55 | DIREP ---
PROCEDURE:XRAY FOOT MIN 3 VWS-RT COMPARISON:None. INDICATIONS:R foot pain FINDINGS: BONES:Three views of the right foot. No acute fracture is seen in the three views of the right foot. Mild hallux valgus noted. Degenerative narrowing of the metatarsal-phalangeal joints. Mild narrowing also seen in the interphalangeal joints. Vascular calcifications seen projecting over the calcaneus on the lateral view. JOINTS:Degenerative narrowing of the metatarsophalangeal and interphalangeal joints. SOFT TISSUES:Normal. OTHER:No additional findings. CONCLUSION:No acute fracture is seen in the three views of the right foot. Dictated by: Felipe Stanley MD on 02/14/2017 at 10:52 PM
[2017-02-15] VITALS: BP 113/53
[2017-02-15 04:00] VITALS: BP 116/58
[2017-02-15] MEDS: SOLU-MEDROL IV SCH ×2 (05:21→14:03)
[2017-02-15 05:38] LABS: BASOPHIL % 0.1 % (0.0-0.2); HEMATOCRIT 36.5 % (37.0-53.0); LYMPHOCYTES # 0.5 10^3/uL (1.0-4.8); LYMPHOCYTES % 6.3 % (24.0-44.0); MEAN CELL HGB 32.3 pg (26-34); MEAN CELL HGB CONCENTRATION 32.9 g/dL (33-37); MEAN CORP VOLUME 98.4 fL (78-100); MEAN PLATELET VOLUME 8.5 fL (7.8-11.0); MONOCYTES # 0.1 10^3/uL (0.3-0.8); MONOCYTES % 0.9 % (5.0-12.0); NEUTROPHIL # 7.4 10^3/uL (1.8-7.7); NEUTROPHILS % 92.4 % (41.0-85.0); PLATELET COUNT 327 10^3/uL (150-400); RED CELL DISTRIBUTION WIDTH 13.7 % (11.5-14.5)
[2017-02-15 06:27] LABS: LYMPHOCYTE 8 % (25-36); MONOCYTE 1 % (3-9); SEGMENTED NEUTROPHILS 91 % (31-76)
--- NOTE | 2017-02-15 06:57 | NUR ---
report report given to o/c shift
--- NOTE | 2017-02-15 07:54 | DIREP ---
PROCEDURE:CT UPPER EXTREMITY-LT W/O COMPARISON:[facility], CR, XRAY SHOULDER MIN 2 VWS-LT, 02/14/2017, 02:36 PM. INDICATIONS:L scapula pain TECHNIQUE:Axial sections through the left shoulder were performed with sagittal and coronal reconstructions from source images. No contrast was administered. FINDINGS: BONES:Lucent area on plain film corresponds to backboard artifact. No scapular osseous destructive lesion. Old left 7th and 8th posteromedial rib fractures. JOINTS:Mild degenerative changes. SOFT TISSUES:Left subclavian and axillary arterial calcifications. OTHER:Large left apical calcified granuloma.. CONCLUSION:No acute bony abnormality or osseous lesion. Dictated by: Halley Soriano MD on 02/15/2017 at 07:43 AM
[2017-02-15] MEDS: DUONEB 0.5 MG-3 MG/3 ML SOLN IH SCH ×3 (08:18→16:20)
[2017-02-15 08:37] VITALS: BP 122/71
[2017-02-15] MEDS: VIBRAMYCIN PO SCH (08:39)
[2017-02-15] MEDS ORDERED: ASPIRIN EC PO SCH (09:00)
--- NOTE | 2017-02-15 11:31 | HPH ---
ADMIT DATE: 02/14/2017 The patient is admitted as an observation to Med-Surg. PRIMARY CARE PHYSICIAN: Kaity Gomez MD Of note is that I had seen the patient on 02/14/2017 in the afternoon when I did my H and P and I am dictating it this morning. ADMITTING DIAGNOSES: 1. COPD exacerbation with shortness of breath. 2. Chest pain. 3. Coronary artery disease with suspected peripheral arterial disease with underlying DJD of hip, knees and shoulder. CHIEF COMPLAINT: Shortness of breath and coughing up sputum. HISTORY OF PRESENT ILLNESS: The patient is a 76-year-old gentleman who came into my office as an initial encounter on 02/14/2017 with the chief complaint of shortness of breath and coughing up sputum. This has been going on for over a week and he states that he has lost 7 pounds. No fevers have been reported. No night sweats. He states that his appetite has been good. He denies any hemoptysis. No hematemesis. No nausea, no vomiting, no abdominal pain, no diarrhea, no constipation, no melena, no hematochezia. He states that his left hip has been bothering him and his left shoulder has been bothering him and his left side of his chest has been bothering him. Family states that he is a very "flighty" person. He tends to make a decision to go ahead and just leave the house and be gone for a month and then come back. He denies taking any medications right now. He is supposed to be on certain medications, but he is not taking any. He states that he does walk, but for 5-6 feet and he gets short-winded. No syncope reported. No lethargy reported. He feels like he cannot get enough air. PAST MEDICAL HISTORY: Significant for COPD and coronary artery disease, DJD and hypertension. PAST SURGERIES: He has had a coronary artery bypass surgery last year, he has had neck surgery, bilateral shoulder arthroscopy, left knee arthroscopy. He reports having more surgeries, but he cannot recall them all. He denies any abdominal surgeries. FAMILY HISTORY: There is heart disease and hypertension in the family. SOCIAL HISTORY: He does have former history of smoking a lot, but he states that nowadays he occasionally smokes. No alcohol, no drugs reported. ALLERGIES: NO KNOWN DRUG ALLERGIES. MEDICATIONS LIST: He is not taking any medications right now, but he is supposed to be on some type of COPD medication and heart medicine and blood pressure medicines. PHYSICAL EXAMINATION: VITAL SIGNS: Initially, temperature is 98.2, pulse rate 84, respirations 18, blood pressure 146/70 and O2 sats of 98% on room air, but it did drop down to 90%. My physical exam is as follows, GENERAL: When I saw him in my office, he was in no acute distress, awake and alert. He is cachectic appearing. HEENT: Oropharynx is clear. No maxillary sinus tenderness, no nasal congestion noted. Extraocular muscles were intact. NECK: Had bilateral bruits heard. No JVD. HEART: S1, S2 audible, best heard at the subxiphoid area. LUNGS: Had diminished breath sounds bilaterally with some rales noted. ABDOMEN: Bowel sounds are present. Soft abdomen, no rebound or guarding. EXTREMITIES: No pitting edema. Distal pulses were monophasic and 1+ bilaterally. No petechiae, no purpura noted. LABORATORY STUDIES: So I had ordered some labs. White count was normal 8600, hemoglobin 13.6, platelet count of 364. Sed rate was elevated at 85. CRP was 4. Chemistry panel had a glucose of 112. Cardiac enzymes negative x 1. BNP was 525. IMAGING STUDIES: Left hip x-ray showed DJD. Left shoulder x-ray showed some DJD. He did have some questionable lytic lesion in the inferior tip of the scapula. I followed this up with a CT scan of the left shoulder that was negative for lytic lesion and that is was just an artifact. He had calcifications in the subclavian, axillary arteries on CT scan, an old 7th and 8th posterior medial rib fractures that have been healed. He was complaining of left foot pain and left foot x-rays did show DJD without any fractures. Chest x-ray showed COPD picture and compared to old x-rays, he had some pulmonary nodules noted of unknown significance at that time. ASSESSMENT: We have this gentleman with COPD exacerbation, shortness of breath and cough with underlying coronary artery disease and peripheral arterial disease with elevated sed rate and abnormal chest x-rays before. I will go ahead and treat his COPD with DuoNeb treatments, oxygen, incentive spirometry, doxycycline and steroids for the time being. I will get carotid ultrasound and ABIs on him to check his peripheral vascular system. Concerning his elevated sed rate, I am concerned about an underlying malignancy. I will follow him and see how he will do in the hospital as an observation stay initially and he will have a workup done for a possible malignancy afterwards. Kaity Gomez MD DR: JEFF/suraj JOB# [id number] [place]
--- NOTE | 2017-02-15 15:23 | NUR ---
DISCHARGE PLANNING: SS VISITED WITH PT REGARDING DISCHARGE PLANNING. PT LIVES HOME ALONE, BUT STATED HIS DAUGHTER LIVES NEXT DOOR. PT USES A CANE TO ASSIST WITH AMBULATION AND STATES HE IS OTHERWISE PRETTY INDEPENDENT. SS EDUCATED PT ON HOME HEALTH SERVICES AND PT FELT LIKE THAT WOULD BE BENEFICIAL. CHOICE LETTER PRESENTED, SIGNED AND PLACED IN PT'S CHART FOR [facility]. TASNEEM SCHWARTZ NOTIFIED OF REFERRAL, AND INFORMATION WAS FAXED OVER. NO FURTHER SS NEEDS NOTED OR IDENTIFIED AT THIS TIME. PT SAFETY HANDOUT ADDRESSED, NO QUESTIONS ASKED, UNDERSTANDING VERBALIZED. CONTACT INFORMATION PROVIDED. SS TO CONTINUE TO FOLLOW AND MONITOR DISCHARGE PLANNING NEEDS.
[2017-02-15 16:50] VITALS: BP 125/61
[2017-02-15] MEDS ORDERED: Ipratropium/Albuterol Sulfate IH (17:20)
[2017-02-15] MEDS ORDERED: ASPI81TA9 PO (17:20)
[2017-02-15] MEDS ORDERED: DOXY100T PO (17:20)
[2017-02-15] MEDS ORDERED: PRED20TA PO (17:20)
--- NOTE | 2017-02-15 17:45 | NUR ---
Discharge Discharge instructions given to pt and daughter. Educated both on new medications. Pt and daughter able to verbalize understanding. Educated pt and daughter on importance of follow up with Dr. Gomez and Dr. Edwards. Answered all pt and daughter questions. Pt and daughter deny further questions or concerns. Removed IV. No bleeding, redness, heat, edema, or pain noted. Covered site with cotton ball and band aid. Transferred off unit via wheelchair to personal vehicle. No s/s of distress noted.
--- NOTE | 2017-02-16 02:11 | DSH ---
DATE OF DISCHARGE: 02/15/2017 ADMITTING DIAGNOSES: COPD exacerbation with shortness of breath and chest pain with underlying coronary artery disease, peripheral vascular disease and pulmonary nodule. DISCHARGE DIAGNOSES: COPD with coronary artery disease, peripheral vascular disease and pulmonary nodule. HOSPITAL COURSE: The patient is a 76-year-old gentleman with underlying COPD and coronary artery disease who quit taking his medications. He came in with increasing shortness of breath. Chest x-ray shows COPD picture without pneumonia. He had a history of pulmonary nodules and he was followed up by a cardiothoracic surgeon, Dr. Lange in [place]. I put him in the hospital and started on IV Solu-Medrol with DuoNeb treatments and oxygen with antibiotic. After 24 hours of treatment, his respiratory status has greatly improved. He feels a lot better. He states that his shortness of breath is gone. His O2 sats are good on room air. I did hear bruits. He did have vascular calcifications on x-rays of his lower legs. So, I went ahead and did ABIs and carotid ultrasound. I also did an echo on him. Results are still pending. His sed rate is elevated and I am concerned about an underlying malignancy. He had pulmonary nodules before and he was sent to Dr. Lange, a cardiothoracic surgeon in [place] and at this time, my plan is to send him back to Dr. Lange after getting outpatient CAT scan of his lungs to follow up with the pulmonary nodules. PSA is pending and alpha-fetoprotein is pending at this point, but his respiratory status is improved. He feels good and would like to go home. At this point, he will be discharged to home with family. I am going to set him up with DuoNeb treatments 3 times a day, doxycycline 100 mg twice a day for 7 more days, prednisone 40 mg a day for 4 more days and aspirin 162 mg a day. He is to follow up with me next week. My office staff will make the appointment. My plan is to schedule an outpatient CT scan of the chest with IV contrast and then refer him back to Dr. Lange, the cardiothoracic surgeon for his pulmonary nodules and then follow up with the results of the outpatient labs that were drawn as well as ultrasounds and echo that were done as well in the hospital. He is to stay on a cardiac diet and follow up with his orthodontist small business owner, Dr. Edwards in 2 weeks' time. Kaity Gomez MD DR: JEFF/suraj JOB# [id number]
--- NOTE | 2017-02-16 12:00 | NUR ---
[facility] CM FAXED PATIENTS DISCHARGE INSTRUCTIONS TO [facility]. CM ALSO NOTIFIED [facility] AND SPOKE TO TASNEEM SCHWARTZ LAUNDRY WASHER REGARDING PATIENTS DISCHARGE FOR 02/16/17 AND HANDED OFF REPORT. TASNEEM STATED [facility] WILL FOLLOW UP WITH PATIENT THROUGHOUT THE WEEKEND. NO FURTHER CM/SS OR DISCHARGE NEEDS KNOWN @ THIS TIME.
== END 2017-02-15 18:04 | disposition home or self-care (01) ==
LOC: MS 14:02
PROVIDERS: ADMIT Pediatrics; ATTEND Pediatrics
DX: J44.1 Chronic obstructive pulmonary disease with (acute) exacerbation (principal); I25.10 Atherosclerotic heart disease of native coronary artery without angina pectoris; I10 Essential (primary) hypertension; M17.0 Bilateral primary osteoarthritis of knee; M16.10 Unilateral primary osteoarthritis, unspecified hip; R70.0 Elevated erythrocyte sedimentation rate; I73.9 Peripheral vascular disease, unspecified; M19.019 Primary osteoarthritis, unspecified shoulder; F17.210 Nicotine dependence, cigarettes, uncomplicated; Z95.1 Presence of aortocoronary bypass graft; Z82.49 Family history of ischemic heart disease and other diseases of the circulatory system; R91.1 Solitary pulmonary nodule; Z79.82 Long term (current) use of aspirin
CPT/HCPCS: 36415; 73030; 73200; 73502; 73630; 82105; 85007; 85025; 93307; 93880; 93922; 94640 ×5; 96374; 96375; 96376; G0103; G0378 ×28; J2270; J2405; J2920 ×3; 84153; J7620

== ENCOUNTER → 2017-02-14 | Outpatient (CLI) | payer MEDICARE ==
[~2017-02-14] MED LIST changes: +ASPI81TA9 PO; +ATOR10TA PO; +BUPR200T31 PO; +DOXY100T PO; +Ipratropium/Albuterol Sulfate IH; +MULT1TAB52 PO
[2017-02-14 11:18] LABS: BASOPHIL % 0.5 % (0.0-0.2); EOSINOPHIL # 0.2 10^3/uL (0.0-0.2); EOSINOPHIL % 1.9 % (0.0-5.0); HEMATOCRIT 41.8 % (37.0-53.0); HEMOGLOBIN 13.6 g/dL (13.9-16.3); LYMPHOCYTES # 1.1 10^3/uL (1.0-4.8); LYMPHOCYTES % 13.1 % (24.0-44.0); MEAN CELL HGB 32.1 pg (26-34); MEAN CELL HGB CONCENTRATION 32.5 g/dL (33-37); MEAN CORP VOLUME 98.6 fL (78-100); MEAN PLATELET VOLUME 8.6 fL (7.8-11.0); MONOCYTES # 0.8 10^3/uL (0.3-0.8); MONOCYTES % 9.2 % (5.0-12.0); NEUTROPHIL # 6.5 10^3/uL (1.8-7.7); NEUTROPHILS % 75.1 % (41.0-85.0); RED CELL DISTRIBUTION WIDTH 14.1 % (11.5-14.5); WHITE BLOOD CELL 8.6 10^3/uL (4.5-11.0)
[2017-02-14 11:31] LABS: ALANINE AMINOTRANSFERASE 26 U/L (12-78); ALKALINE PHOSPHATASE 71 U/L (50-136); ASPARTATE AMINO TRANSFERASE 19 U/L (0-35); CALCIUM 9.3 mg/dL (8.4-10.5); CARBON DIOXIDE 28.3 mmol/L (20.0-32); GLUCOSE 112 mg/dL (70-110)
--- NOTE | 2017-02-14 14:53 | DIREP ---
PROCEDURE:CHEST 2 VIEWS COMPARISON:[facility], CR, XRAY CHEST 2 VWS, 01/17/2017, 03:13 PM. [facility], CR, XRAY CHEST 2 VWS, 12/11/2016, 11:37 AM. INDICATIONS:SOB, COUGH FINDINGS: LUNGS/PLEURA:There is hyperinflation of the lung huff consistent with COPD. No infiltrates are seen bilaterally. VASCULATURE:Normal. Unremarkable pulmonary vasculature. CARDIAC:Median sternotomy changes are seen with the heart size normal. MEDIASTINUM:Normal. No visible mass or adenopathy. BONES:Several remote left rib fractures are again noted and mild degenerative changes in the thoracic spine. OTHER:Surgical clips are noted in the lower neck. CONCLUSION:Previous sternotomy changes are seen with findings chronic obstructive pulmonary disease without acute infiltrate or significant interval change. Dictated by: Dash Matta M.D. on 02/14/2017 at 02:50 PM
== END | disposition home or self-care (01) ==
LOC: RAD 10:29
PROVIDERS: ATTEND Pediatrics
DX: J44.9 Chronic obstructive pulmonary disease, unspecified (principal); Z98.890 Other specified postprocedural states
CPT/HCPCS: 36415; 71020; 80053; 82550; 83880; 84484; 85025; 85651; 86140

== ENCOUNTER 2017-07-31 21:05 | Emergency (ER) | payer MEDICARE ==
[~2017-07-31] VITALS: Ht 157.5 cm; Wt 54.4 kg
[~2017-07-31 21:05] MED LIST changes: -ALBU8.5H3 IH; +ALBU8.5H7 IH; +ASPI-655 PO; +DOXY100T PO; +Ipratropium/Albuterol Sulfate IH; -MELO-180 PO; +MELO7.5T31 PO
--- NOTE | 2017-07-31 23:10 | NUR ---
daughter -POA daughter provided form from DR Heaton that states Patient has dementia
--- NOTE | 2017-07-31 23:30 | ER.PDOC ---
General Chief Complaint: Medical Clearance Stated Complaint: MEDICAL CLEARANCE Time seen by MD: 23:13 Source: family, police Exam Limitations: clinical condition, intoxication History of Present Illness Initial Comments found wandering by pd to ed via sherriff Timing/Duration: unknown Character of AMS: combative Context: chronic dementia, recent alcohol intake Usually: alert but confused Associated Symptoms: recent illness Prior symptoms/Treatment: Similar symptoms previous Allergies: Coded Allergies: No Known Allergies (Unverified , 12/01/13) Home Meds Active Scripts Prednisone (PREDNISONE) 20 Mg Tablet, 40 MG PO DAILY, #8 TAB 0 Refills Prov:LINWOOD NELSON MD 02/15/17 Aspirin (ASPIRIN EC) 81 Mg Tablet.dr, 162 MG PO DAILY, #60 TAB 2 Refills Prov:LINWOOD NELSON MD 02/15/17 [Ipratropium/Albuterol Sulfate] 3 ML AMPUL.NEB No Conflict Check, 3 ML IH TID, # 1 BOX 3 Refills Prov:LINWOOD NELSON MD 02/15/17 Doxycycline Hyclate (DOXYCYCLINE HYCLATE) 100 Mg Tablet, 100 MG PO BID, #14 TABLET 0 Refills Prov:LINWOOD NELSON MD 02/15/17 Reported Medications Meloxicam (MELOXICAM) 7.5 Mg Tablet, 7.5 MG PO BID 06/17/16 Past Medical History Medical History: congestive heart failure, COPD, diabetes Surgical History: coronary bypass surgery, neck Family History Significant Family History: no pertinent family hx Social History Smoking: less than 1 pack/day Alcohol Use: heavy Drug Use: none Review of Systems Constitutional: denies fever Respiratory: denies cough Cardiovascular: denies chest pain Gastrointestinal: denies abdominal pain Musculoskeletal: denies muscle pain All Other Systems: Reviewed and Negative Physical Exam General Appearance: moderate distress HEENT: ENT inspection nml Neuro/Psych: abnml cognition Peripheral Exam: motor nml, sensation nml, reflexes nml Neck: supple, non-tender, no carotid bruit Respiratory: no resp distress, breath sounds nml CVS: reg rate & rhythm, heart sounds nml Abdomen: non-tender, no organomegaly, no distention Skin: color nml, no rash, warm/dry Extremities: non-tender, nml ROM, no pedal edema Results/Orders Results/Orders Laboratory Tests Test 07/31/17 23:26 08/01/17 00:45 White Blood Count 8.7 10^3/uL (4.5-11.0) Red Blood Count 4.17 10^6/uL (4.50-5.90) Hemoglobin 12.9 g/dL (13.9-16.3) Hematocrit 39.5 % (37.0-53.0) Mean Corpuscular Volume 94.7 fL (78-100) Mean Corpuscular Hemoglobin 30.9 pg (26-34) Mean Corpuscular Hemoglobin Concent 32.7 g/dL (33-37) Red Cell Distribution Width 13.7 % (11.5-14.5) Platelet Count 279 10^3/uL (150-400) Mean Platelet Volume 8.7 fL (7.8-11.0) Neutrophils (%) (Auto) 73.3 % (41.0-85.0) Lymphocytes (%) (Auto) 17.3 % (24.0-44.0) Monocytes (%) (Auto) 8.1 % (5.0-12.0) Neutrophils # (Auto) 6.3 10^3/uL (1.8-7.7) Lymphocytes # (Auto) 1.5 10^3/uL (1.0-4.8) Monocytes # (Auto) 0.7 10^3/uL (0.3-0.8) Absolute Immature Granulocyte (auto 0.02 10^3 u/L (0-2) Eosinophils % 0.6 % (0.0-5.0) Basophils % 0.5 % (0.0-0.2) Basophils # 0.0 10^3/uL (0.0-0.1) Eosinophil Count 0.1 10^3/uL (0.0-0.2) Prothrombin Time 11.6 SEC (9.8-11.9) Prothrombin Time INR (Non-Therap) 1.1 Sodium Level 139 mmol/L (132-145) Potassium Level 4.3 mmol/L (3.6-5.2) Chloride Level 102.0 mmol/L (96-109) Carbon Dioxide Level 22.5 mmol/L (20.0-32) Anion Gap 18.8 Blood Urea Nitrogen 40 mg/dL (7-18) Creatinine 1.31 mg/dL (0.59-1.40) Estimated GFR () 64.0 (>/=60) BUN/Creatinine Ratio 30.0 Glucose Level 113 mg/dL (70-110) Calcium Level 9.5 mg/dL (8.4-10.5) Total Bilirubin 0.5 mg/dL (0.2-1.0) Aspartate Amino Transf (AST/SGOT) 18 U/L (0-35) Alanine Aminotransferase (ALT/SGPT) 19 U/L (12-78) Alkaline Phosphatase 66 U/L (50-136) Total Protein 8.2 g/dL (6.4-8.2) Albumin 4.5 g/dL (3.4-5.0) Globulin 3.7 Thyroid Stimulating Hormone (TSH) 1.214 mIU/mL (0.358-3.740) Valproic Acid (Depakene) Level < 3 ug/mL (50-100) [place] Level < 0.20 mmol/L (0.6-1.2) Percent Immature Gran (Cell Imm) 0.20 % (0.00-0.50) Urine Collection Type UNKNOWN Urine Color YELLOW (YELLOW) Urine Appearance CLEAR (CLEAR) Urine Bilirubin NEGATIVE MG/DL (NEGATIVE) Urine Ketones NEGATIVE (NEGATIVE) Urine Specific [place] 1.020 (1.005-1.035) Urine pH 6 (5.0-6.0) Urine Protein 15 mg/dL (NEGATIVE) Urine Urobilinogen NORMAL (NEGATIVE) Urine Nitrate NEGATIVE (NEGATAIVE) Urine Leukocyte Esterase NEGATIVE (NEGATIVE) Urine Blood NEGATIVE (NEGATIVE) Urine RBC NONE SEEN RBC/HPF (NONE Urine WBC 0-2 WBC/HPF (0-2) Urine Squamous Epithelial Cells FEW #/HPF (FEW) Urine Bacteria NONE SEEN (NONE SEEN) Urine Hyaline Casts 0-1 (NONE SEEN) Urine Other 4+ MUCUS #/HPF Urine Glucose NORMAL (NEGATIVE) Opiates Screen NEGATIVE (NEGATIVE) Barbiturate Screen NEGATIVE (NEGATIVE) Urine Tricyclic Antidepressants NEGATIVE (NEGATIVE) Phencyclidine (PCP) Screen NEGATIVE (NEGATIVE) Amphetamines Screen NEGATIVE (NEGATIVE) Benzodiazepines Screen NEGATIVE (NEGATIVE) Cocaine Screen NEGATIVE (NEGATIVE) Ur Tetrahydrocannabinol (THC) Scrn NEGATIVE (NEGATIVE) Progress Progress labs wnl not homicidal suicidal psyche refuses EKG/XRAY/CT/US EKG Comments: 95 Departure Time of Disposition: 01:16 Disposition: 01 HOME, SELF-CARE Impression: Primary Impression: Bipolar 1 disorder Condition: Stable Referrals: PCP,UNKNOWN (PCP) PRIMARY CARE PROVIDER BHASKAR WOODWARD MD Jul 31, 2017 23:30
[2017-07-31 23:35] LABS: BASOPHIL % 0.5 % (0.0-0.2); EOSINOPHIL # 0.1 10^3/uL (0.0-0.2); EOSINOPHIL % 0.6 % (0.0-5.0); HEMOGLOBIN 12.9 g/dL (13.9-16.3); LYMPHOCYTES # 1.5 10^3/uL (1.0-4.8); LYMPHOCYTES % 17.3 % (24.0-44.0); MEAN CELL HGB 30.9 pg (26-34); MEAN CELL HGB CONCENTRATION 32.7 g/dL (33-37); MEAN CORP VOLUME 94.7 fL (78-100); MEAN PLATELET VOLUME 8.7 fL (7.8-11.0); MONOCYTES # 0.7 10^3/uL (0.3-0.8); MONOCYTES % 8.1 % (5.0-12.0); NEUTROPHIL # 6.3 10^3/uL (1.8-7.7); NEUTROPHILS % 73.3 % (41.0-85.0); RED CELL DISTRIBUTION WIDTH 13.7 % (11.5-14.5); WHITE BLOOD CELL 8.7 10^3/uL (4.5-11.0)
--- NOTE | 2017-07-31 23:38 | PCM.EKG ---
[facility] Test Date: 2017-07-31 Test Time: 23:32:34 Pat Name: SHIRA SADLER Department: Room: Gender: M [employer] Technician: ELAINE : 1940 Requested By: BHASKAR WOODWARD Order Number: [id number] Reading MD: Measurements Intervals [place] Rate: 95 P: 71 CO: 156 QRS: 75 QRSD: 66 T: 65 QT: 350 QTc: 439 Interpretive Statements Normal sinus rhythm Septal infarct, age undetermined Abnormal ECG No previous ECG available for comparison Please click the below link to view image of tracing.
--- NOTE | 2017-07-31 23:53 | NUR ---
aggressive patient combative but can be talked into allowing x ray to remove pen from pocket
[2017-07-31 23:58] LABS: ALANINE AMINOTRANSFERASE 19 U/L (12-78); ALKALINE PHOSPHATASE 66 U/L (50-136); ASPARTATE AMINO TRANSFERASE 18 U/L (0-35); CALCIUM 9.5 mg/dL (8.4-10.5); CARBON DIOXIDE 22.5 mmol/L (20.0-32); GLUCOSE 113 mg/dL (70-110)
--- NOTE | 2017-08-01 00:10 | DIREP ---
PROCEDURE:CHEST 2 VIEWS COMPARISON:[facility], CR, XRAY CHEST 2 VWS, 02/14/2017, 10:38 AM. [facility], CR, XRAY CHEST 2 VWS, 01/17/2017, 03:13 PM. INDICATIONS:[place] FINDINGS: LUNGS/PLEURA:Stable hyperinflation and flattening of the hemidiaphragms, consistent with COPD. No focal consolidation, pleural effusion, or pneumothorax. VASCULATURE:Normal. Unremarkable pulmonary vasculature. CARDIAC:Heart size is normal. 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 MEDIASTINUM:Stable mildly tortuous and calcified thoracic aorta. BONES:Stable mild degenerative changes involving the shoulders and thoracic spine. Stable remote, healed, left posterior rib fractures. No acute abnormality. OTHER:External artifact related to the patient's jacket and contents overlies the lower chest on the initial images. CONCLUSION: 1. Stable findings of COPD. No focal airspace consolidation. 2. Stable postoperative changes of CABG. 3. Additional chronic findings, as above. Dictated by: Enrique Lyons M.D. On 08/01/2017 at 00:06 AM
--- NOTE | 2017-08-01 00:14 | NUR ---
[facility] Stephanie VarmaRN at bedside for assessment
--- NOTE | 2017-08-01 00:40 | NUR ---
status pateint sitting on bed more cooperative , states he left home this morning [place] [address] to go to [place], [place] . 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 HE STATES HIS DAUGHTER HAS TOLD HIM TO LEAVE ON SEVERAL OCCASIONS AND TODAY HE GOT MAD AND LEFT . PATIENT ALSO IS UNHAPY WITH THE TIMESHIS DAUGHTER GIVES HIS MEDICATION STATING HE IS SUPPOSED TO TAKE HIS MEDICATION INTHE MORNING . ABLE TO STATE WHAT WHAT MEDICATION IS FOR , patient had loose pills in shirt pocket . Patient stated was his daily medication
[2017-08-01 00:51] LABS: BILIRUBIN,URINE NEGATIVE (NEGATIVE); UROBILINOGEN,URINE NORMAL (NEGATIVE)
--- NOTE | 2017-08-01 00:53 | NUR ---
urine urine collected and sent to lab
[2017-08-01 01:03] LABS: APPEARANCE,URINE CLEAR (CLEAR); UA COLOR YELLOW (YELLOW); WBC,URINE 0-2 WBC/HPF (0-2)
[2017-08-01 01:05] LABS: UR BENZODIAZEPINE QUAL NEGATIVE (NEGATIVE); UR COCAINE QUAL NEGATIVE (NEGATIVE)
--- NOTE | 2017-08-01 01:08 | NUR ---
jace Varma RN called and stated he presented case to Dr Olivares and stated patient does not meet criteria for Jace Rodgers at this time
--- NOTE | 2017-08-01 01:39 | NUR ---
PD PATIENT REFUSES TO LEAVEWITH FAMILY SAYS HE DOES NOT TRUST THEM , PD CALLED AND OFFICER WILL TAKE PATIENT TO [facility] PER PATIENT REQUEST
[2017-08-01 02:01] VITALS: BP 155/96
== END 2017-08-01 01:39 | disposition home or self-care (01) ==
LOC: ER 21:05
DX: F31.9 Bipolar disorder, unspecified (principal); E11.9 Type 2 diabetes mellitus without complications; F03.90 Unspecified dementia, unspecified severity, without behavioral disturbance, psychotic disturbance, mood disturbance, and anxiety; I50.9 Heart failure, unspecified; J44.9 Chronic obstructive pulmonary disease, unspecified; Z79.82 Long term (current) use of aspirin; Z95.1 Presence of aortocoronary bypass graft; F17.200 Nicotine dependence, unspecified, uncomplicated
CPT/HCPCS: 36415; 71010; 80053; 80164; 80178; 80307; 81000; 84443; 85025; 85610; 93005; 99285